=== PATIENT | female | born 1970 | race Native Hawaiian/Other Pacific Islander ===

== ENCOUNTER 2017-04-23 05:30 | Emergency (ER) | payer BC ==
[~2017-04-23] VITALS: Ht 160 cm; Wt 84.8 kg
[2017-04-23] MEDS ORDERED: CARV3.12 PO (05:46)
[2017-04-23] MEDS ORDERED: DIGOX125 MCG PO (05:46)
[2017-04-23] MEDS ORDERED: FENOFIBRATE120 MG PO (05:47)
[2017-04-23] MEDS ORDERED: JARDIANCE25 MG PO (05:47)
[2017-04-23] MEDS ORDERED: HUMIRA10 MG/0.2 SC (05:47)
[2017-04-23] MEDS ORDERED: FLUO10CA2 PO (05:48)
[2017-04-23] MEDS ORDERED: REQUIP0.25 MG OR (05:49)
[2017-04-23] MEDS ORDERED: PRAZOSIN HCL1 MG OR (05:49)
== END 2017-04-23 07:29 | disposition home or self-care (01) ==
LOC: ED 05:30
DX: S80.01XA Contusion of right knee, initial encounter (principal); X50.1XXA Overexertion from prolonged static or awkward postures, initial encounter
CPT/HCPCS: 96372; 99284; J2175; J2405; J2930